=== PATIENT | female | born 1985 | race Native Hawaiian/Other Pacific Islander ===

== ENCOUNTER 2021-12-31 20:21 | Emergency (ER) | payer BC ==
[~2021-12-31] VITALS: Ht 167.6 cm; Wt 63.5 kg
[2021-12-31 20:49] VITALS: TEMP 98.3
[2021-12-31 21:44] LABS: PLATELET COUNT 272 K/uL (152-353)
[2021-12-31 21:53] LABS: POTASSIUM 3.5 mmol/L (3.6-5.2)
[2021-12-31 22:06] LABS: PARTIAL THROMBOPLASTIN TIME 26.7 SECONDS (24.5-33.6)
[2022-01-01 00:26] VITALS: BP 172/94
== END 2022-01-01 00:55 | disposition home or self-care (01) ==
LOC: ED 20:21
PROVIDERS: Hospitalist
DX: K52.89 Other specified noninfective gastroenteritis and colitis (principal); R11.2 Nausea with vomiting, unspecified; R19.7 Diarrhea, unspecified
CPT/HCPCS: 36415; 80053; 80320; 83605; 83690; 85027; 85610; 85730; 87040; 96360; 96361; 96365; 96368; 96375; 99284; J1170; J1885; J2405; J3490; Q9963